=== PATIENT | female | born 1985 | race Caucasian/White ===

== ENCOUNTER 2020-06-18 15:32 | Outpatient (CLI) | payer OTHER, SELFPAY ==
[2020-06-18 15:54] LABS: Basophils Absolute Auto 0.06 K/mm3 (0.00-0.10); Basophils Percent Auto 0.5 % (0.0-1.0); Eosinophils Absolute Auto 0.42 K/mm3 (0.02-0.50); Eosinophils Percent Auto 3.3 % (1.0-6.0); Hematocrit 39.7 % (35.0-49.0); Immature Granulocyte Absolute 0.03 K/mm3 (0.00-0.00); Immature Granulocyte Percent A 0.2 % (0.0-0.0); Lymphocytes Absolute Auto 2.95 K/mm3 (1.10-4.50); Lymphocytes Percent Auto 23.5 % (18.0-42.0); Mean Corpuscular HGB Conc 30.2 g/dL (32.0-36.0); Mean Corpuscular Volume 79.4 fL (78.0-102.0); Mean Platelet Volume 10.3 fl (9.2-11.8); Monocytes Percent Auto 4.8 % (2.0-11.0); Neutrophils Absolute Auto 8.5 K/mm3 (1.7-7.2); Neutrophils Percent Auto 67.7 % (50.0-70.0); Platelet Count Result 364 K/mm3 (150-420); Red Cell Distribution Width 14.6 % (11.6-14.4); White Blood Count 12.6 K/mm3 (4.8-10.8)
[2020-06-18 16:09] LABS: Alanine Aminotransferase 30 U/L (14-59); Albumin Level 3.6 g/dL (3.4-5.0); Alkaline Phosphatase 117 U/L (46-116); Amylase 52 U/L (25-115); Anion Gap 6 mmol/L (8-16); Aspartate Amino Transferase 18 U/L (15-37); Bilirubin,Total 0.4 mg/dL (0.00-1.00); Blood Urea Nitrogen 12 mg/dL (7-18); Calcium 8.7 mg/dL (8.5-10.1); Carbon Dioxide 31 mmol/L (21-32); Chloride 101 mmol/L (98-108); Estimated Glomerular Filt Rate > 60; Glucose 99 mg/dL (70-99); Lipase 101 U/L (73-393); Osmolality Calculated 285 mOsm/kg (285-295); Potassium 3.7 mmol/L (3.5-5.1); Sodium 138 mmol/L (136-145); Total Protein 7.7 g/dL (6.4-8.2)
[2020-06-18 17:14] LABS: Add Urine Microscopic? NO; Appearance Urine Clear (Clear); Bilirubin Urine Negative (Negative); Blood Urine Negative (Negative); Color Urine Yellow (Yellow); Glucose Urine UA Negative (Negative); Ketones Urine Negative (Negative); Leukocyte Esterase Ur Negative LEU/UL (Negative); Nitrate Urine Negative (Negative); Protein Urine Negative (Negative); Specific Grav Ur 1.025 (1.010-1.020); Urobilinogen Urine 0.2 mg/dL (0.2-1.0); pH Urine 6.5 (5.0-8.0)
== END 2020-06-18 15:33 | disposition home or self-care (01) ==
LOC: CHSLAB 15:39
PROVIDERS: PCP Internal Medicine; Visit Provider Internal Medicine
DX: R10.9 Unspecified abdominal pain (principal)
CPT/HCPCS: 36415; 80053; 81003; 82150; 83690; 85025

== ENCOUNTER 2020-06-26 10:20 | Outpatient (CLI) | payer OTHER, SELFPAY ==
--- NOTE | ~2020-06-26 | CT_ITS ---
EXAMINATION: CT abdomen pelvis wo con DATE: 06/26/2020 13:12 INDICATION: Left abdominal pain. TECHNIQUE: Computed tomography (CT) of the abdomen and pelvis was performed without intravenous contr ast. Automated exposure control and iterative reconstruction technique were employed. The dose-length product was 1383.28 mGy-cm. COMPARISON: CT abdomen and pelvis 12/05/2015 FINDINGS: The visualized portions of the lung bases are clear without pneumonia or pleural effusion. The heart size is normal. No pericardial effusion. The liver is normal. There is a gallstone in the g allbladder, which is normal in size. The spleen, pancreas, adrenal glands, and kidneys are normal. Th ere are no dilated loops of bowel. The appendix is normal. There are no pathologically enlarged lymph nodes. There is a small volume of pelvic ascites. There is an infraumbilical ventral hernia containi ng fat and a small volume of ascites. There are likely changes of prior hernia repair. There is sever e degenerative disc disease at L5-S1. IMPRESSION: 1. Infraumbilical ventral hernia containing fat and a small volume of ascites. 2. Cholelithiasis. Reviewed, dictated and finalized at location B.
== END 2020-06-26 10:21 | disposition home or self-care (01) ==
LOC: CHSIMG 10:22
PROVIDERS: PCP Internal Medicine; Visit Provider Internal Medicine
DX: R10.9 Unspecified abdominal pain (principal)
CPT/HCPCS: 74176

== ENCOUNTER 2021-02-20 08:40 | Outpatient (CLI) | payer OTHER, SELFPAY ==
--- NOTE | ~2021-02-20 | MMUS_ITS ---
EXAMINATION: MM diagnostic [facility] BI w steve, US breast BI limited HISTORY: Palpable lump at the 4:00 location of the left breast. TECHNIQUE: Craniocaudal, mediolateral, and mediolateral oblique 3-D tomosynthesis images of the ruelas ts were performed and synthetic 2-D images were generated. CAD analysis was submitted and interpreted . High resolution limited bilateral breast ultrasound was performed. COMPARISON: None, baseline BREAST PARENCHYMAL COMPOSITION: There are scattered areas of fibroglandular density. FINDINGS: MAMMOGRAPHIC FINDINGS: Right breast: There is a 4 mm oval, circumscribed, equal density mass in the middle third of inner br east at the 3:00 location 5 cm from the nipple. Left breast: There is no evidence of suspicious mass, calcification, or architectural distortion to suggest malignancy. No mammographic correlate is identified for the reported palpable abnormality of the left breast. ULTRASOUND: Right breast: There is a 5 mm x 3 mm oval, circumscribed, parallel, hypoechoic mass with no posterior features or internal vascularity at the 2:00 location 3 cm from the nipple. A 3 mm mass with similar sonographic features is seen at the 1:00 location 3 cm from the nipple. Left breast: There is a 3 mm hypoechoic area in the skin of the left breast at the 3:00 location 7 cm from the nipple corresponding to the palpable abnormality of concern. A tract to the skin surface is seen, consistent with a sebaceous cyst. IMPRESSION: 1. Sebaceous cyst of the left breast corresponding to palpable abnormality of concern and probably be nign mass of the inner right breast. 2. Recommend 6 month follow-up right diagnostic mammogram and ultrasound. BI-RADS category 3, probably benign findings. Reviewed, dictated and finalized at location A. IMPRESSION: 1. Sebaceous cyst of the left breast corresponding to palpable abnormality of c oncern and probably benign mass of the inner right breast. 2. Recommend 6 month follow-up right diagnostic mammogram and ultrasound. BI-RADS category 3, probably benign findings.
== END 2021-02-20 08:41 | disposition home or self-care (01) ==
LOC: CHSIMG 08:41
PROVIDERS: PCP Internal Medicine; Visit Provider Nurse Practitioner Family
DX: N64.52 Nipple discharge (principal); N63.0 Unspecified lump in unspecified breast
CPT/HCPCS: 76642; 77062; 77066; G0279

== ENCOUNTER 2021-07-29 07:24 | Emergency (ER) | payer OTHER, SELFPAY ==
--- NOTE | ~2021-07-29 | CT_ITS ---
EXAMINATION: CT abdomen pelvis w con DATE: 07/29/2021 11:04 INDICATION: Lower abdominal pain, nausea, vomiting and diaphoresis. TECHNIQUE: Computed tomography (CT) of the abdomen and pelvis was performed with 100 mL Omnipaque-350 intravenous contrast. Automated exposure control and iterative reconstruction technique were employe d. The dose-length product was 1205.86 mGy-cm. COMPARISON: 06/26/2020 FINDINGS: Lung bases are clear. Heart size is normal. No pericardial or pleural effusion. Calcified gallstone i n the normal-appearing gallbladder. Liver, spleen, pancreas, bilateral adrenal glands and kidneys are normal. Segment of the nonobstructed sigmoid colon extends into a lower pelvic ventral hernia. The o rifice of the hernia measures 3.4 x 4.6 cm and the hernia sac measures 13.2 x 10.7 x 4.8 cm, previous ly 12.6 x 9.1 x 4.0 cm. The remainder of the colon, the small bowel and the appendix are normal. Blad carlota, anteverted uterus and bilateral adnexa are unremarkable. No free intraperitoneal gas or fluid as terry from a small amount of free fluid within the hernia sac. No pathologically enlarged abdominal or pelvic lymphadenopathy. Mild to moderate spondylosis at the lumbosacral junction. IMPRESSION: 1. Unchanged infraumbilical ventral hernia containing nonobstructed sigmoid colon and small amount of fluid. 2. Cholelithiasis. Reviewed, dictated and finalized at location A. IMPRESSION: 1. Unchanged infraumbilical ventral hernia containing nonobstructed sigmoid col on and small amount of fluid. 2. Cholelithiasis.
--- NOTE | ~2021-07-29 | US_ITS ---
EXAMINATION: US pelvic complete w TV DATE: 07/29/2021 08:38 INDICATION: Abdominal pain. Uterine fibroids. TECHNIQUE: Multiple transabdominal and endovaginal sonographic images of the pelvis were obtained. COMPARISON: None. FINDINGS: The uterus measures 12.3 x 8.0 x 8.4 cm. The endometrial complex measures 8-9 mm in thickness. 1.6 s imilar hypoechoic fibroid at the lower uterine segment with small coarse echogenic calcification. Add itional 2.6 cm isoechoic fibroid at the left fundus. 1.4 cm isoechoic fibroid at the right uterine fu ndus. Likely section scar at the anterior lower uterine segment scarring with echogenic like ly sutures or calcifications. The right ovary measures 2.7 x 2.1 x 2.0 cm. The left ovary measures 3. 9 x 2.2 x 1.8 cm. Vascular flow with arterial waveforms at both ovaries on color Doppler. There is no free fluid in the pelvis. IMPRESSION: 1. Fibroid uterus with normal endometrial complex measuring 8-9 mm in maximal thickness. Reviewed, dictated and finalized at location A. IMPRESSION: 1. Fibroid uterus with normal endometrial complex measuring 8-9 mm in maximal t hickness.
[2021-07-29 07:30] VITALS: BP 153/104; PULSE 87; RESP 20; TEMP 36.2; O2SAT 100
--- NOTE | 2021-07-29 07:35 | ED.ABDPAIN ---
HPI - Abdominal Pain General Chief Complaint: Abdominal Pain Stated Complaint: ABD PAIN Source: patient and RN notes reviewed Mode of arrival: ambulatory Limitations: no limitations History of Present Illness MD elicited complaint: abdominal pain Pertinent past history: other (uterine fibroids) Onset (ago): hour(s) (2.5) Pain Consistency: constant Location: RLQ and LLQ Severity: severe Quality: cramping and stabbing Radiation: none Migration to: no migration Exacerbating factors: nothing Relieving factors: nothing Associated symptoms: nausea and vomiting Related Data Allergies Allergy/AdvReac Type Severity Reaction Status Date / Time ibuprofen Allergy Intermediate Verified 03/03/18 09:37 Review of Systems Review of Systems: All systems reviewed & are unremarkable except as noted in HPI and below Constitutional: Constitutional: Denies chills and Denies fever(s) Gastrointestinal: Gastrointestinal: Denies constipation and Denies diarrhea Genitourinary: Genitourinary: Denies dysuria Comments: currently on her monthly menstrual cycle [facility] Past Medical History Medical History (Updated 07/29/21 @ 11:30 by Bob Small MD) Uterine fibroid Surgical History Surgical History (Updated 07/29/21 @ 08:35 by Bob Small MD) Incisional hernia, without obstruction or gangrene Family History Family History Other Cerebrovascular accident Family history of arthritis Family history of heart disease in male family member before age 55 Social History Social History Smoking status: Never smoker Alcohol intake: current Exam Const: General: healthy appearing and no acute distress Nutritional Appearance: well nourished Orientation/consciousness: patient oriented x3 Other: Female nurse in room during examination. HENMT: Head: normal to inspection Ears: external ears normal Mouth: Yes moist mucous membranes Eyes: Conjunctivae: conjunctivae normal Pupils: Equal, round and reactive pupils present EOM: EOMs intact bilaterally Neck: Neck: normal visual inspection Resp: Effort & Inspection: normal respiratory effort Auscultation: clear to auscultation bilaterally Cardio: Rate: regular rate Rhythm: regular rhythm GI: GI Palp: Yes Soft to palpation, Yes Tenderness to palpation present (GI) ( Lower pelvis moderate) and Yes Guarding due to palpation present (GI) ( moderate) Auscultation: Hypoactive bowel sounds present Back/Spine/Pelvis: Cervical Spine: cervical ROM normal Thoracic/Lumbar Spine: thoraco-lumbar ROM normal Skin: General skin exam: normal color Rashes: no rashes Neuro: General: patient oriented x3, moves all extremities, no meningeal signs and no focal motor deficits Speech: normal speech Gait exam (Neuro): Normal gait present Extrem: General: normal to inspection and no clubbing, cyanosis or edema Psych: Appearance: grossly normal and well kempt Mental Status: mental status grossly normal Affect: normal affect Attitude: cooperative Thought content: Yes Normal thought content present Course Vital Signs Vital signs: Vital Signs Temperature 36.2 C L 07/29/21 07:30 Pulse Rate 87 07/29/21 07:30 Respiratory Rate 20 07/29/21 07:30 Blood Pressure 153/104 H 07/29/21 07:30 Pulse Oximetry 100 07/29/21 07:30 Temperature 36.2 C L 07/29/21 08:22 Pulse Rate 71 07/29/21 11:46 Respiratory Rate 14 07/29/21 11:46 Blood Pressure 126/79 07/29/21 11:46 Pulse Oximetry 96 07/29/21 11:46 MDM - Abdominal Pain Lab Data Result diagrams: 07/29/21 07:43 07/29/21 07:43 Labs: Lab Results 07/29/21 07/29/21 07/29/21 Range/Units 07:35 07:35 07:43 WBC 11.9 H (4.8-10.8) K/mm3 RBC 5.58 H (4.20-5.40) M/mm3 Hgb 12.4 (12.0-15.0) g/dL Hct 41.3 (35.0-49.0) % MCV 74.0 L (78.0-102.0) fL MCH 22.2 L (27.0-3
[2021-07-29] MEDS: ONDANSETRON INJ 4 MG/2 ML VIAL IV PUSH (07:55)
[2021-07-29 07:57] LABS: Basophils Absolute Auto 0.04 K/mm3 (0.00-0.10); Basophils Percent Auto 0.3 % (0.0-1.0); Eosinophils Absolute Auto 0.15 K/mm3 (0.02-0.50); Eosinophils Percent Auto 1.3 % (1.0-6.0); Hematocrit 41.3 % (35.0-49.0); Hemoglobin 12.4 g/dL (12.0-15.0); Immature Granulocyte Absolute 0.05 K/mm3 (0.00-0.00); Immature Granulocyte Percent A 0.4 % (0.0-0.0); Lymphocytes Percent Auto 11.8 % (18.0-42.0); Mean Corpuscular Hemoglobin 22.2 pg (27.0-31.0); Mean Platelet Volume 10.2 fl (9.2-11.8); Monocytes Absolute Auto 0.37 K/mm3 (0.10-0.90); Monocytes Percent Auto 3.1 % (2.0-11.0); Neutrophils Absolute Auto 9.9 K/mm3 (1.7-7.2); Neutrophils Percent Auto 83.1 % (50.0-70.0); Platelet Count Result 344 K/mm3 (150-420); Red Blood Count 5.58 M/mm3 (4.20-5.40); Red Cell Distribution Width 15.7 % (11.6-14.4); White Blood Count 11.9 K/mm3 (4.8-10.8)
[2021-07-29 08:06] LABS: Add Urine Microscopic? YES; Appearance Urine Cloudy (Clear); Bilirubin Urine Negative (Negative); Blood Urine 3+ (Negative); Color Urine Red (Yellow); Glucose Urine UA Negative (Negative); Ketones Urine Negative (Negative); Leukocyte Esterase Ur Negative LEU/UL (Negative); Nitrate Urine Negative (Negative); Protein Urine 1+ (Negative); Specific Grav Ur >= 1.030 (1.010-1.020); Urobilinogen Urine 0.2 mg/dL (0.2-1.0); pH Urine 5.5 (5.0-8.0)
[2021-07-29 08:13] LABS: Alanine Aminotransferase 32 U/L (14-59); Albumin Level 3.8 g/dL (3.4-5.0); Alkaline Phosphatase 109 U/L (46-116); Anion Gap 10 mmol/L (8-16); Aspartate Amino Transferase 13 U/L (15-37); Bilirubin,Total 0.4 mg/dL (0.00-1.00); Blood Urea Nitrogen 16 mg/dL (7-18); Calcium 8.8 mg/dL (8.5-10.1); Carbon Dioxide 26 mmol/L (21-32); Chloride 105 mmol/L (98-108); Estimated Glomerular Filt Rate > 60; Glucose 119 mg/dL (70-99); Lipase 113 U/L (73-393); Osmolality Calculated 294 mOsm/kg (285-295); Potassium 3.8 mmol/L (3.5-5.1); Sodium 141 mmol/L (136-145); Total Protein 7.5 g/dL (6.4-8.2)
[2021-07-29 08:16] LABS: Bacteria Urine Trace /hpf; RBC Urine >75 /hpf (0-2); Squamous Epithelial Cell Urine Few /hpf (Few); WBC Urine None seen /hpf (0-3)
[2021-07-29 08:22] VITALS: BP 153/104; PULSE 87; RESP 20; TEMP 36.2; O2SAT 100
[2021-07-29 08:22] LABS: CRP < 0.5 mg/dL (0.0-0.9)
[2021-07-29] MEDS: KETOROLAC 15 MG/ML VIAL (*BKC) IV PUSH ×2 (08:39→08:48)
[2021-07-29] MEDS: HYDROmorphone HCL INJ (*CRX) 2 MG/ML VIAL 1 MG IV PUSH (09:58)
[2021-07-29 10:27] LABS: Pregnancy On Board Control Positive; Urine Pregnancy Test Negative
[2021-07-29 11:46] VITALS: BP 126/79; PULSE 71; RESP 14; O2SAT 96
== END 2021-07-29 11:49 | disposition home or self-care (01) ==
PROVIDERS: Emergency Provider Emergency Medicine; PCP Internal Medicine
DX: D25.1 Intramural leiomyoma of uterus (principal)
CPT/HCPCS: 36415; 74177; 76830; 76856; 80053; 81001; 81025; 83605; 83690; 85025; 86140; 96374; 96375; 99283; 99284; J1170; J1885; J2405; Q9967

== ENCOUNTER 2021-11-03 09:02 | Outpatient (CLI) | payer OTHER, SELFPAY ==
[2021-11-03 10:00] LABS: Influenza Control Valid (Valid); SARS-CoV-2 Ag Positive (Negative)
== END 2021-11-03 09:03 | disposition home or self-care (01) ==
LOC: CHSLAB 09:04
PROVIDERS: PCP Internal Medicine; Visit Provider Internal Medicine
DX: U07.1 COVID-19 (principal); J06.9 Acute upper respiratory infection, unspecified
CPT/HCPCS: 87426; 87804; C9803

== ENCOUNTER 2022-09-04 15:13 | Outpatient (CLI) | payer OTHER, SELFPAY ==
--- NOTE | ~2022-09-04 | XR_ITS ---
XR_CERV2-3V_CR DATE: 09/04/2022 15:52 INDICATION: Pain at base of the neck radiating into right shoulder TECHNIQUE: AP, open-mouth, odontoid, lateral and swimmer views COMPARISON: None FINDINGS: There is straightening of the cervical spine which may be due to muscle spasm. C1 and C2 are normally aligned and the odontoid process is intact. No fracture or dislocation or lock ed facet or prevertebral soft tissue swelling. Cervical interspaces appear relatively well preserved except for mild loss of height at C4-5. IMPRESSION: Mild loss of height at C4-5 interspace Straightening of the cervical spine Reviewed, dictated and finalized at Location A. Reviewed, dictated and finalized at location A.
--- NOTE | ~2022-09-04 | XR_ITS ---
XR shoulder RT min 2V DATE: 09/04/2022 15:52 INDICATION: Pain at base of the neck radiating into right shoulder TECHNIQUE: 5 views COMPARISON: None FINDINGS: No fracture or dislocation, periosteal reaction or bone destruction. Normal alignment at th e acromioclavicular and glenohumeral joints. No abnormal right shoulder soft tissue calcification. One of the views provided 6 a good look at the right cervical neural foramina, without evidence of an y bony encroachment upon these these foramina. IMPRESSION: No significant abnormality of right shoulder; no significant bony encroachment upon the r ight cervical neural foramina Reviewed, dictated and finalized at location A. IMPRESSION: No significant abnormality of right shoulder; no significant bony e ncroachment upon the right cervical neural foramina
== END 2022-09-04 15:14 | disposition home or self-care (01) ==
LOC: CHSIMG 15:15
PROVIDERS: PCP Internal Medicine; Visit Provider Internal Medicine
DX: M54.2 Cervicalgia (principal); M25.511 Pain in right shoulder
CPT/HCPCS: 72040; 73030

== ENCOUNTER 2022-11-16 08:18 | Outpatient (CLI) | payer OTHER, SELFPAY ==
[2022-11-16 08:58] LABS: Basophils Absolute Auto 0.09 K/mm3 (0.00-0.10); Basophils Percent Auto 0.8 % (0.0-1.0); Eosinophils Absolute Auto 0.49 K/mm3 (0.02-0.50); Eosinophils Percent Auto 4.4 % (1.0-6.0); Hematocrit 37.6 % (35.0-49.0); Hemoglobin 11.5 g/dL (12.0-15.0); Immature Granulocyte Absolute 0.05 K/mm3 (0.00-0.00); Immature Granulocyte Percent A 0.4 % (0.0-0.0); Lymphocytes Absolute Auto 2.88 K/mm3 (1.10-4.50); Lymphocytes Percent Auto 25.9 % (18.0-42.0); Mean Corpuscular HGB Conc 30.6 g/dL (32.0-36.0); Mean Corpuscular Hemoglobin 22.7 pg (27.0-31.0); Mean Corpuscular Volume 74.3 fL (78.0-102.0); Mean Platelet Volume 10.1 fl (9.2-11.8); Monocytes Absolute Auto 0.55 K/mm3 (0.10-0.90); Monocytes Percent Auto 4.9 % (2.0-11.0); Neutrophils Absolute Auto 7.1 K/mm3 (1.7-7.2); Neutrophils Percent Auto 63.6 % (50.0-70.0); Platelet Count Result 366 K/mm3 (150-420); Red Blood Count 5.06 M/mm3 (4.20-5.40); Red Cell Distribution Width 15.7 % (11.6-14.4); White Blood Count 11.1 K/mm3 (4.8-10.8)
[2022-11-16 09:22] LABS: Add Urine Microscopic? NO; Appearance Urine Clear (Clear); Bilirubin Urine Negative (Negative); Blood Urine Negative (Negative); Color Urine Light Yellow (Yellow); Glucose Urine UA Negative (Negative); Ketones Urine Negative (Negative); Leukocyte Esterase Ur Negative (Negative); Nitrate Urine Negative (Negative); Protein Urine Negative (Negative); Urobilinogen Urine 0.2 mg/dL (0.2-1.0)
[2022-11-16 10:00] LABS: Alanine Aminotransferase 34 U/L (14-59); Albumin Level 3.9 g/dL (3.4-5.0); Alkaline Phosphatase 119 U/L (46-116); Anion Gap 10 mmol/L (8-16); Aspartate Amino Transferase 16 U/L (15-37); Bilirubin,Total 0.4 mg/dL (0.00-1.00); Blood Urea Nitrogen 15 mg/dL (7-18); Calcium 8.7 mg/dL (8.5-10.1); Carbon Dioxide 27 mmol/L (21-32); Chloride 99 mmol/L (98-108); Cholesterol 177 mg/dL (0-200); Estimated Glomerular Filt Rate > 60; Glucose 86 mg/dL (70-99); HDL Direct 55 mg/dL (40-60); LDL Cholesterol Calculated 106 mg/dL (<130); Osmolality Calculated 281 mOsm/kg (285-295); Potassium 3.8 mmol/L (3.5-5.1); Sodium 136 mmol/L (136-145); Thyroid Stimulating Hormone 2.25 uIU/mL (0.36-3.74); Total Protein 7.4 g/dL (6.4-8.2); Triglycerides 79 mg/dL (0-150)
[2022-11-16 13:45] LABS: Ferritin 7 ng/mL (8-252); Iron 22 ug/dL (50-170); Percent Iron Saturation 5 % (12-57)
== END 2022-11-16 08:19 | disposition home or self-care (01) ==
LOC: CHSLAB 08:20
PROVIDERS: PCP Internal Medicine; Visit Provider Internal Medicine
DX: D64.89 Other specified anemias (principal)
CPT/HCPCS: 36415; 80053; 80061; 81003; 82728; 83540; 83550; 84443; 85025

== ENCOUNTER 2022-12-16 18:37 | Outpatient (CLI) | payer OTHER, SELFPAY ==
[2022-12-16 18:50] LABS: Occult Blood Negative (Negative)
[2022-12-16 18:50] LABS: Occult Blood Negative (Negative)
[2022-12-16 18:50] LABS: Occult Blood Negative (Negative)
== END 2022-12-16 18:38 | disposition home or self-care (01) ==
LOC: CHSLAB 18:40
PROVIDERS: PCP Internal Medicine; Visit Provider Internal Medicine
DX: D50.9 Iron deficiency anemia, unspecified (principal)
CPT/HCPCS: 82272

== ENCOUNTER 2023-01-13 09:04 | Outpatient (CLI) | payer OTHER, SELFPAY ==
--- NOTE | 2023-01-13 11:00 | NEURO_ITS ---
Impression: Patient with a history of bilateral hand pain; Concern for Carpal Tunnel Syndrome. # Normal nerve conduction study. # Normal needle/EMG exam. # Clinical correlation recommended. Motor Nerve Conduction Upper Extremities Median Nerve Conduction Velocity (m/sec) Terminal Latency (msec) Response Voltage(mV) Elbow-Wrist Wrist Elbow Wrist Right 56 2.7 9 11 Left 57 2.6 8 9 Ulnar Nerve Conduction Velocity (m/sec) Terminal Latency (msec) Response Voltage(mV) Above Elbow Below Elbow Wrist Above Elbow Below Elbow Wrist Right 61 64 2.1 9 8 10 Left 63 65 2.1 9 9 10 F-Wave Latency Median (ms) Ulnar (ms) Right 25.7 24.3 Left 25.2 24.1 Sensory Nerve Conduction Upper Extremities Median Nerve Stimulation Terminal Latency (msec) Wrist/Digit Response Voltage (uV) Wrist Right 2.7/2.8 52/67 Left 2.7/2.7 83/67 Ulnar Nerve Stimulation Terminal Latency (msec) Wrist/Digit Response Voltage (uV) Wrist Right 2.2 76 Left 2.3 77 Radial Nerve Terminal Latency (msec) Response Voltage(mV) Right 1.9 35 Left 1.9 30 Left Right Muscles Examined Fibrillation Fasciculation Scarcity Voltage Duration Left Right Left Right Left Right Left Right Left Right Deltoid Biceps X X Brachioradialis Triceps X X Pronator Teres X X Ext Indicis X X Ext Digitorum X X Abd Poll Brev X X 1st Dorsal Interosseus Paraspinals MTDD
== END 2023-01-13 09:05 | disposition home or self-care (01) ==
PROVIDERS: PCP Internal Medicine; Visit Provider Internal Medicine
DX: M79.631 Pain in right forearm (principal); M79.632 Pain in left forearm; M79.641 Pain in right hand; M79.642 Pain in left hand
CPT/HCPCS: 95886; 95911

== ENCOUNTER 2023-02-09 07:55 | Outpatient (CLI) | payer OTHER, SELFPAY ==
--- NOTE | ~2023-02-09 | XR_ITS ---
XR elbow RT min 3V 02/09/2023 09:04 INDICATION: Right elbow pain PROCEDURE: 3 views right elbow COMPARISON: No prior studies for comparison. FINDINGS: Fracture, dislocation or subluxation is not identified. The soft tissues appear within norm al limits. No foreign bodies are identified. IMPRESSION: 1: NO ACUTE BONE OR JOINT ABNORMALITY IDENTIFIED. Reviewed, dictated and finalized at location L.
--- NOTE | ~2023-02-09 | XR_ITS ---
XR wrist RT min 3V 02/09/2023 09:04 INDICATION: Right wrist pain PROCEDURE: 3 views right wrist COMPARISON: No prior studies for comparison. FINDINGS: Fracture, dislocation or subluxation is not identified. The soft tissues appear within norm al limits. No foreign bodies are identified. IMPRESSION: 1: NO ACUTE BONE OR JOINT ABNORMALITY IDENTIFIED. Reviewed, dictated and finalized at location L.
== END 2023-02-09 07:56 | disposition home or self-care (01) ==
LOC: CHSIMG 07:57
PROVIDERS: PCP Internal Medicine; Visit Provider Orthopaedic Surgery
DX: M25.531 Pain in right wrist (principal); M25.521 Pain in right elbow
CPT/HCPCS: 73080; 73110

== ENCOUNTER 2023-12-09 06:16 | Outpatient (CLI) | payer OTHER, SELFPAY ==
--- NOTE | ~2023-12-09 | MR_ITS ---
MRI of the cervical spine Clinical History: Radiculopathy, pain Technique: Axial T2-weighted and gradient images, and sagittal T1-weighted, T2-weighted, and STIR kamryn ges were acquired. Findings: There is straightening of the normal cervical lordosis. No fracture or subluxation seen. No suspicious bone marrow signal abnormality seen. At C2-C3, C3-C4, and C4-C5, there is no disc bulge or herniation. No spinal canal stenosis, cord comp ression, or neural foraminal narrowing at these levels. At C5-C6, there is mild disc bulge. No spinal canal stenosis, cord compression, or neural foraminal n arrowing. At C6-C7, there is no disc bulge or herniation. No spinal canal stenosis, cord compression, or neural foraminal narrowing. No abnormal signal seen in the spinal cord. Paravertebral soft tissues are unremarkable. Impression: Minimal degenerative spondylosis at C5-C6. Reviewed, dictated and finalized at [facility]. [employer]LYST Impression: Minimal degenerative spondylosis at C5-C6.
== END 2023-12-09 06:17 | disposition home or self-care (01) ==
LOC: CHSIMG 06:21
PROVIDERS: PCP Internal Medicine; Visit Provider Internal Medicine
DX: M54.12 Radiculopathy, cervical region (principal); M43.02 Spondylolysis, cervical region
CPT/HCPCS: 72141

== ENCOUNTER 2024-03-23 06:32 | Outpatient (CLI) | payer OTHER, SELFPAY ==
--- NOTE | ~2024-03-23 | MM_ITS ---
EXAMINATION: MM screening [facility] BI w steve HISTORY: Screening TECHNIQUE: Craniocaudal and mediolateral oblique 3-D tomosynthesis images were obtained and synthetic 2-D images were generated. CAD analysis was submitted and interpreted. COMPARISON: Comparison to multiple prior studies sequentially, with oldest reviewed study dated 02/20. BREAST PARENCHYMAL COMPOSITION: There are scattered areas of fibroglandular density. FINDINGS: There is no evidence of suspicious mass, calcification, or architectural distortion to sugg est malignancy in either breast. There has been no suspicious interval change. IMPRESSION: 1. No mammographic evidence of malignancy. 2. Recommend routine screening mammography in one year. BI-RADS Category 1: Negative Reviewed, dictated and finalized at location A.
== END 2024-03-23 06:33 | disposition home or self-care (01) ==
LOC: CHSIMG 06:33
PROVIDERS: PCP Internal Medicine; Visit Provider Obstetrics & Gynecology
DX: Z12.31 Encounter for screening mammogram for malignant neoplasm of breast (principal)
CPT/HCPCS: 77063; 77067

== ENCOUNTER 2024-08-01 11:56 | Outpatient (CLI) | payer OTHER, SELFPAY ==
--- NOTE | ~2024-08-01 | XR_ITS ---
3 VIEWS THORACIC SPINE Ordering provider: Yimi Razo MD History: . Thoracic Pain,NKI . Comparison: None. FINDINGS: VERTEBRAL BODIES: Normal height and alignment. No visible fracture or subluxation. DISK SPACES: Normal. SOFT TISSUES: Normal. IMPRESSION: No acute osseous abnormality of the thoracic spine. Reviewed, dictated and finalized at location A.
== END 2024-08-01 11:57 | disposition home or self-care (01) ==
PROVIDERS: PCP Internal Medicine; Visit Provider Internal Medicine
DX: M54.6 Pain in thoracic spine (principal)
CPT/HCPCS: 72072

== ENCOUNTER 2024-09-08 10:40 | Outpatient (CLI) | payer OTHER, SELFPAY ==
[2024-09-08 11:21] LABS: Basophils Percent Auto 0.7 % (0.0-1.0); Eosinophils Absolute Auto 0.41 K/mm3 (0.02-0.50); Eosinophils Percent Auto 2.7 % (1.0-6.0); Hematocrit 46.3 % (35.0-49.0); Hemoglobin 15.3 g/dL (12.0-15.0); Immature Granulocyte Absolute 0.07 K/mm3 (0.00-0.00); Immature Granulocyte Percent A 0.5 % (0.0-0.0); Lymphocytes Absolute Auto 2.21 K/mm3 (1.10-4.50); Lymphocytes Percent Auto 14.6 % (18.0-42.0); Mean Corpuscular Hemoglobin 27.8 pg (27.0-31.0); Mean Corpuscular Volume 84.2 fL (78.0-102.0); Mean Platelet Volume 9.6 fl (9.2-11.8); Monocytes Absolute Auto 0.82 K/mm3 (0.10-0.90); Monocytes Percent Auto 5.4 % (2.0-11.0); Neutrophils Absolute Auto 11.55 K/mm3 (1.70-7.20); Neutrophils Percent Auto 76.1 % (50.0-70.0); Platelet Count Result 331 K/mm3 (150-420); Red Cell Distribution Width 13.6 % (11.6-14.4); White Blood Count 15.2 K/mm3 (4.8-10.8)
[2024-09-08 11:50] LABS: Alanine Aminotransferase 68 U/L (14-59); Albumin Level 3.6 g/dL (3.4-5.0); Alkaline Phosphatase 131 U/L (46-116); Anion Gap 11 mmol/L (4-12); Aspartate Amino Transferase 37 U/L (15-37); Bilirubin,Total 0.6 mg/dL (0.00-1.00); Blood Urea Nitrogen 8 mg/dL (7-18); Calcium 9.4 mg/dL (8.5-10.1); Carbon Dioxide 27 mmol/L (21-32); Chloride 104 mmol/L (98-108); Estimated Glomerular Filt Rate > 60; Glucose 107 mg/dL (70-99); Osmolality Calculated 292 mOsm/kg (285-295); Potassium 4.3 mmol/L (3.5-5.1); Sodium 142 mmol/L (136-145); Total Protein 7.3 g/dL (6.4-8.2)
[2024-09-08 12:21] LABS: Monoscreen Negative (Negative); Negative Monotest Control Negative (Negative); Positive Monotest Control Positive (Positive)
== END 2024-09-08 10:41 | disposition home or self-care (01) ==
LOC: CHSLAB 10:43
PROVIDERS: PCP Internal Medicine; Visit Provider Nurse Practitioner Family
DX: J02.9 Acute pharyngitis, unspecified (principal); R50.9 Fever, unspecified
CPT/HCPCS: 36415; 80053; 85025; 86308; 87070

== ENCOUNTER 2024-10-10 02:55 | Emergency (ER) | payer OTHER, SELFPAY ==
--- NOTE | ~2024-10-10 | CT_ITS ---
CT of the Abdomen and Pelvis: Indication: Umbilical pain Technique: 2.5 mm axial scans were obtained through the abdomen and pelvis following intravenous adm inistration of 100 cc of Omnipaque 350. Dose reduction technique was used on this scan by utilizing a utomated exposure control and iterative reconstruction technique. The dose-length product (DLP) was 1 443.28 mGy-cm. COMPARISON: 07/29/2021 Findings: Scans through the lung bases are unremarkable. The liver, spleen, pancreas, adrenals and kidneys are within normal limits. Large calcified gallstone present. No evidence of aortic aneurysm. No lymphadenopathy. There is a focally distended area of small bowel just anterior to the uterus (axial image [id number], co cassy image 48). Possible minimal adjacent inflammatory stranding. Remainder of small bowel and large bowel is unremarkable, nondistended.. There is no evidence to suggest acute appendicitis. There is a probable small seroma at the anteroinferior subcutaneous soft tissues measuring 4.5 x 1.8 cm (axial image 172). Images through the pelvis were performed. Urinary bladder unremarkable. IUD in place. No pelvic mass evident. No ascites. Impression: Focally distended area of small bowel, with possible minimal adjacent inflammatory change, as detaile d above. Appearance is somewhat nonspecific. Consider Meckel's diverticulum/diverticulitis. Correlate clinically. Cholelithiasis. Reviewed, dictated and finalized at [facility]. NISTRATIVE MEDICAL DIRECTOR Impression: Focally distended area of small bowel, with possible minimal adjacent inflammat ory change, as detailed above. Appearance is somewhat nonspecific. Consider Mec fariha's diverticulum/diverticulitis. Correlate clinically. Cholelithiasis.
[2024-10-10 09:19] VITALS: BP 126/79; PULSE 80; RESP 16; TEMP 35.9; O2SAT 98
[2024-10-10 10:08] LABS: Appearance Urine Clear (Clear); Bilirubin Urine Negative (Negative); Glucose Urine UA Negative (Negative); Ketones Urine 2+ (Negative); Leukocyte Esterase Ur Negative (Negative); Nitrate Urine Negative (Negative); Protein Urine Negative (Negative); Urobilinogen Urine 0.2 mg/dL (0.2-1.0)
[2024-10-10 10:09] LABS: Add Urine Microscopic? NO; Blood Urine Negative (Negative); Color Urine Light Yellow (Yellow)
[2024-10-10 10:10] LABS: Strep Group A RT-PCR NOT DETECTED (Negative)
[2024-10-10 10:11] LABS: Monoscreen Negative (Negative); Negative Monotest Control Negative (Negative); Positive Monotest Control Positive (Positive); Pregnancy On Board Control Positive; Urine Pregnancy Test Negative
[2024-10-10 10:13] LABS: Anion Gap 9 mmol/L (4-12); Blood Urea Nitrogen 5 mg/dL (7-18); Carbon Dioxide 27 mmol/L (21-32); Chloride 102 mmol/L (98-108); Estimated Glomerular Filt Rate > 60; Potassium 3.6 mmol/L (3.5-5.1); Sodium 138 mmol/L (136-145)
[2024-10-10 10:14] LABS: Alanine Aminotransferase 33 U/L (14-59); Albumin Level 3.7 g/dL (3.4-5.0); Alkaline Phosphatase 101 U/L (46-116); Aspartate Amino Transferase 13 U/L (15-37); Bilirubin,Total 0.7 mg/dL (0.00-1.00); Calcium 9.3 mg/dL (8.5-10.1); Glucose 133 mg/dL (70-99); Lipase 20 U/L (16-77); Osmolality Calculated 285 mOsm/kg (285-295)
[2024-10-10 10:18] LABS: Hematocrit 41.3 % (35.0-49.0); Hemoglobin 14.2 g/dL (12.0-15.0); Mean Corpuscular HGB Conc 34.4 g/dL (32-36); Mean Corpuscular Hemoglobin 28.1 pg (27.0-31.0); Mean Corpuscular Volume 81.8 fL (78.0-102.0); Mean Platelet Volume 9.5 fl (9.2-11.8); Platelet Count Result 342 K/mm3 (150-420); Red Blood Count 5.05 M/mm3 (4.20-5.40); Red Cell Distribution Width 13.3 % (11.6-14.4)
[2024-10-10 10:19] LABS: White Blood Count 20.2 K/mm3 (4.8-10.8)
[2024-10-10 10:21] LABS: Band Neutrophils Percent 0 % (0-6); Lymphocytes Absolute Manual 2.62 K/mm3 (1.1-4.5); Lymphocytes Percent Manual 13 % (18-44); Monocytes Percent Manual 3 % (3-9); Neutrophils Absolute Manual 16.96 K/mm3 (1.7-7.2); Neutrophils Percent Manual 84 % (46-73); Platelet Estimate Adequate (Adequate); Total Cells Counted 100
[2024-10-10 10:45] VITALS: BP 132/79; PULSE 84; RESP 18; TEMP 36.4; O2SAT 97
--- NOTE | 2024-10-10 10:45 | ER_ITS ---
This report was moved to the correct visit on 10/13/2024. The original report was signed by Alonso Swanson on 10/10/24 1252. HPI - Abdominal Pain General Chief Complaint: Abdominal Pain Stated Complaint: Abdominal Pain Time Seen by Provider: 10/10/24 07:00 Source: patient and other (report at shift change) Mode of arrival: ambulatory Limitations: no limitations History of Present Illness HPI narrative: (0700) I received report and assumed care of this patient at shift change. Computer down and patient initially on paper chart [see paper chart]. Patient is 39 year old female who presented to the Emergency Department with complaint of abdominal pain. 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 Patient has had diarrhea for months and has been diagnosed with IBS. She has had hernia repairs to lower abdomen and mesh. Patient indicates her pain is midline above umbilcus. MD elicited complaint: abdominal pain Onset (ago): hour(s) (12) Pain Consistency: constant Location: epigastric Radiation: none Exacerbating factors: nothing Relieving factors: nothing Related Data Patient : No Allergies Allergy/AdvReac Type Severity Reaction Status Date / Time ibuprofen Allergy Intermediate Itching Verified 02/09/23 10:12 naproxen AdvReac Mild Itching Verified 10/10/24 08:28 Review of Systems Review of Systems: All systems reviewed & are unremarkable except as noted in HPI and below Constitutional: Constitutional: Reports as per HPI, Denies chills and Denies fever(s) Eyes: Eyes: Reports as per HPI ENT: Reports system reviewed and no additional complaints, except as documented Cardiovascular: Cardiovascular: Reports as per HPI Respiratory: Respiratory: Reports as per HPI Gastrointestinal: Gastrointestinal: Reports as per HPI, Reports abdominal pain and Reports diarrhea Genitourinary: Genitourinary: Reports no additional female genitourinary complaints Musculoskeletal: Musculoskeletal: Reports no additional musculoskeletal complaints Integumentary/Breasts: Skin/Breast: Reports system reviewed and no additional complaints, except as docu Neurologic: Reports system reviewed and no additional complaints, except as documented Psychiatric: Psychiatric: Reports no additional psychiatric complaints Endocrine: Endocrine: Reports no additional endocrine complaints Hematologic/Lymphatic: Hematologic/Lymphatic: Reports no additional hematologic/lymphatic complaints Allergic/Immunologic: Allergic/Immunologic: Reports no additional allergic/immunologic complaints PMFSH Past Medical History Medical History Strain of right biceps brachii muscle or tendon Uterine fibroid Surgical History Surgical History History of section Incisional hernia, without obstruction or gangrene [address] [place] [address] Family History Family History Mother Heart disease Diabetes mellitusFather Heart diseaseOther Cerebrovascular accident Family history of arthritis Family history of heart disease in male family member before age 55 Social History Social History Smoking status: Never smoker Alcohol intake: current Substance use: never Living arrangements: with family Additional living arrangements comments: Patient lives at home with her and four of her children. Occupation/Education: occupation Additional occupation/education comments: Patient Access with [place] [employer] [place] Gender identity (if verbalized by the patient): Female Sexual Orientation (if Verbalized by the Patient): Straight or Heterosexual Exam Const: General: healthy appearing and no acute distress Nutritional Appearance: obese Orientation/consciousness: patient oriented x3 Limitations: no limitations HENMT: Head: normal to inspection Ears: external ears normal Face/Nose/Sinus: Normal external nose present Face and sinus: normal facial exam Mouth: Yes Normal oral and palatal mucosa present Eyes: Conjunctivae: conjunctivae normal Pupils: Equal, round and reactive pupils present EOM: EOMs intact bilaterally Direct Ophthalmoscopy: no photophobia Neck: Neck: normal visual inspection Chest: Chest palpation & inspection: normal inspection of the chest Resp: Effort & Inspection: normal respiratory effort Auscultation: clear to auscultation bilaterally Cardio: Rate: regular rate Rhythm: regular rhythm GI: Inspection: non-distended GI Palp: Yes Soft to palpation, Yes Tenderness to palpation present (GI) (mildly midline above umbilicu), No Guarding due to palpation present (GI), No Hernia present, No Palpable mass present and No Rebound tenderness present Auscultation: normal bowel sounds : General: Yes bladder normal to palpation Back/Spine/Pelvis: Back: no CVA tenderness Skin: General skin exam: normal color Rashes: no rashes Neuro: General: patient oriented x3 Cranial nerves: Yes Nystagmus not present Speech: normal speech Gait exam (Neuro): Normal gait present Other: grossly normal Extrem: General: normal to inspection and no clubbing, cyanosis or edema Psych: Mental Status: mental status grossly normal Course Course Emergency Course: (07) I received report and assumed care of this patient at shift change. Patient here with abdominal pain [indicates midline above umbilicus]. 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 Has had diarrhea for months and has been diagnosed with IBS in the past. Patient added she has had sore throat for several months now, has been w/u and negative, and her daughter was dx with mono. PE: tender just above umbilicus midline, no guarding or rebound CBC: H/H 14.2/41.3, Plt 342; wbc 20.2 with 85 S, 13 L, 3 M [patient states she normally has high WBC] CMP: Na 138, K 3.6, Cl 102, CO2 27, Glc 133, BUN 5, Cr 0.87; LFT's normal UA: 2+ ketones UPreg: neagativ Strep: negative Jasper: negative CT Abd/Pelvis: single large gallstone, no gallbladder wall thickening or surrounding inflammatory changes. 2.5 x 4 x 4.5 cm fluid collection 14 cm below umbilicus in midline. ? post surgical. *reviewed and discussed results with patient. Discussed further management. [7130] Called patient's hernia surgeon [Dr. Lawrence Mackay at [facility]] Office said he would call back. [no call back for 90 minutes] Patient states she is ready to go home. Her abdomen feels somewhat better. States she will contact her surgeon and follow up . Instructions (9719) Dr. Mackay's sales office assistant called back. Report given. Will f/u with patient. Vital Signs Vital signs: Vital Signs Temperature 35.9 C L 10/10/24 09:19 Pulse Rate 80 10/10/24 09:19 Respiratory Rate 16 10/10/24 09:19 Blood Pressure 126/79 10/10/24 09:19 Pulse Oximetry 98 10/10/24 09:19 Oxygen Delivery Room Air 10/10/24 09:19 Temperature 36.4 C L 10/10/24 10:45 Pulse Rate 84 10/10/24 10:45 Respiratory Rate 18 10/10/24 10:45 Blood Pressure 132/79 10/10/24 10:45 Pulse Oximetry 97 10/10/24 10:45 Oxygen Delivery Room Air 10/10/24 10:45 Discharge Plan Discharge Clinical Impression: Abdominal pain, Abdominal fluid collection, Gallstone, Leukocytosis Patient Disposition: Home, Self-Care Condition: Stable Instructions: Irritable Bowel Syndrome (ED), Gallstones (ED), Abdominal Pain (ED) Additional Instructions: Push fluids Take medications as prescribed Follow up Primary Care Provider Follow up with your Surgeon (Dr. Mackay). Call today Return as needed Patient Language: Telugu Prescriptions: New ondansetron 4 mg tablet,disintegrating 4 mg PO Q6H PRN (Reason: nausea and vomiting) Qty: 20 0RF hydrocodone-acetaminophen 10-325 mg tablet 1 tablet PO Q6H PRN (Reason: pain) Qty: 20 0RF Follow-up/Referrals: Yimi Razo MD [Primary Care Provider] - Time of Disposition: 10:48 This report may have been done utilizing a voice recognition system. Attempts have been made to correct errors. However, there may be uncorrected grammatical, spelling, and recognition errors present. Report Initialized date/time: Alonso Swanson MD 10/10/24 / 1045 Electronically signed by: Alonso Swanson MD 10/10/24 0713 [facility]
== END 2024-10-10 10:55 | disposition home or self-care (01) ==
PROVIDERS: Emergency Provider Emergency Medicine; PCP Internal Medicine
DX: K80.20 Calculus of gallbladder without cholecystitis without obstruction (principal); D72.829 Elevated white blood cell count, unspecified; R18.8 Other ascites
CPT/HCPCS: 36415; 74177; 80053; 81003; 81025; 83690; 85025; 86308; 87651; 96374; 96375; 96376; 99283; 99284; J1171; J2405; J7030; Q9967

== ENCOUNTER 2024-10-11 14:16 | Outpatient (CLI) | payer OTHER, SELFPAY ==
[2024-10-11 14:50] LABS: Basophils Absolute Auto 0.05 K/mm3 (0.00-0.10); Basophils Percent Auto 0.4 % (0.0-1.0); Eosinophils Absolute Auto 0.27 K/mm3 (0.02-0.50); Eosinophils Percent Auto 2.2 % (1.0-6.0); Hematocrit 40.9 % (35.0-49.0); Hemoglobin 14.1 g/dL (12.0-15.0); Immature Granulocyte Absolute 0.07 K/mm3 (0.00-0.00); Immature Granulocyte Percent A 0.6 % (0.0-0.0); Lymphocytes Absolute Auto 2.35 K/mm3 (1.10-4.50); Lymphocytes Percent Auto 19.4 % (18.0-42.0); Mean Corpuscular HGB Conc 34.5 g/dL (32-36); Mean Corpuscular Hemoglobin 28.8 pg (27.0-31.0); Mean Corpuscular Volume 83.5 fL (78.0-102.0); Mean Platelet Volume 9.6 fl (9.2-11.8); Monocytes Absolute Auto 0.62 K/mm3 (0.10-0.90); Monocytes Percent Auto 5.1 % (2.0-11.0); Neutrophils Absolute Auto 8.78 K/mm3 (1.70-7.20); Neutrophils Percent Auto 72.3 % (50.0-70.0); Platelet Count Result 327 K/mm3 (150-420); Red Cell Distribution Width 13.5 % (11.6-14.4); White Blood Count 12.1 K/mm3 (4.8-10.8)
[2024-10-11 15:14] LABS: CRP 5.5 mg/dL (0.0-0.9)
[2024-10-11 17:41] LABS: Toxigenic C. Diff NEGATIVE (NEGATIVE)
[2024-10-13 04:23] LABS: EBV Virus Capsid Ag IgM Ab <36.00 U/mL
[2024-10-18 16:09] LABS: Calprotectin, Stool 352 mcg/g
== END 2024-10-11 14:17 | disposition home or self-care (01) ==
LOC: CHSLAB 14:18
PROVIDERS: PCP Internal Medicine; Visit Provider Internal Medicine
DX: R10.9 Unspecified abdominal pain (principal); R19.7 Diarrhea, unspecified
CPT/HCPCS: 36415; 83993; 85025; 86140; 86664; 86665; 87045; 87177; 87209; 87427; 87449; 87493

== ENCOUNTER 2024-10-20 13:47 | Outpatient (CLI) | payer OTHER, SELFPAY ==
--- NOTE | 2024-10-20 13:53 | ECG_ITS ---
Test Date: 2024-10-20 14:09:39 Measurements Intervals [place] Rate: 105 P: 61 TN: 142 QRS: 25 QRSD: 85 T: 46 QT: 315 QTc: 418 Interpretive Statements SINUS TACHYCARDIA SEPTAL MYOCARDIAL INFARCTION , PROBABLY OLD [40+ ms Q WAVE IN V1/V2] No previous ECG available for comparison Electronically Signed On 10-20-2024 15:45:47 SCREEN AND CYCLONE REPAIRER by Brent Kern M.D.
== END 2024-10-20 13:48 | disposition home or self-care (01) ==
LOC: CHSCARD 13:49
PROVIDERS: PCP Internal Medicine; Visit Provider Internal Medicine
DX: R00.0 Tachycardia, unspecified (principal)
CPT/HCPCS: 93005

== ENCOUNTER 2024-10-23 11:06 | Outpatient (CLI) | payer OTHER, SELFPAY ==
[2024-10-23 11:29] LABS: Basophils Absolute Auto 0.07 K/mm3 (0.00-0.10); Basophils Percent Auto 0.7 % (0.0-1.0); Eosinophils Absolute Auto 0.36 K/mm3 (0.02-0.50); Eosinophils Percent Auto 3.4 % (1.0-6.0); Hematocrit 42.2 % (35.0-49.0); Immature Granulocyte Absolute 0.04 K/mm3 (0.00-0.00); Immature Granulocyte Percent A 0.4 % (0.0-0.0); Lymphocytes Absolute Auto 2.46 K/mm3 (1.10-4.50); Lymphocytes Percent Auto 23.2 % (18.0-42.0); Mean Corpuscular HGB Conc 33.2 g/dL (32-36); Mean Corpuscular Hemoglobin 27.7 pg (27.0-31.0); Mean Corpuscular Volume 83.6 fL (78.0-102.0); Mean Platelet Volume 9.6 fl (9.2-11.8); Monocytes Absolute Auto 0.64 K/mm3 (0.10-0.90); Neutrophils Absolute Auto 7.03 K/mm3 (1.70-7.20); Neutrophils Percent Auto 66.3 % (50.0-70.0); Platelet Count Result 321 K/mm3 (150-420); Red Blood Count 5.05 M/mm3 (4.20-5.40); Red Cell Distribution Width 13.7 % (11.6-14.4); White Blood Count 10.6 K/mm3 (4.8-10.8)
[2024-10-23 11:41] LABS: D Dimer 0.37 mg/L (0.19-0.50)
[2024-10-23 12:13] LABS: Alanine Aminotransferase 20 U/L (14-59); Albumin Level 3.6 g/dL (3.4-5.0); Alkaline Phosphatase 90 U/L (46-116); Anion Gap 9 mmol/L (4-12); Aspartate Amino Transferase 14 U/L (15-37); Bilirubin,Total 0.4 mg/dL (0.00-1.00); Blood Urea Nitrogen 11 mg/dL (7-18); Carbon Dioxide 29 mmol/L (21-32); Chloride 103 mmol/L (98-108); Creatine Kinase 86 U/L (26-192); Estimated Glomerular Filt Rate > 60; Free T3 2.79 pg/mL (2.18-3.98); Free T4 Free Thyroxine 1.04 ng/dL (0.76-1.46); Glucose 110 mg/dL (70-99); NT Pro B Type Natriuretic Pept 41 pg/mL (0-125); Osmolality Calculated 292 mOsm/kg (285-295); Potassium 3.9 mmol/L (3.5-5.1); Sodium 141 mmol/L (136-145); Thyroid Stimulating Hormone 0.91 uIU/mL (0.36-3.74); Total Protein 6.5 g/dL (6.4-8.2); Troponin I 6.3 ng/L (0.00-60.4)
== END 2024-10-23 11:07 | disposition home or self-care (01) ==
LOC: CHSLAB 11:08
PROVIDERS: PCP Internal Medicine; Visit Provider Internal Medicine
DX: R00.0 Tachycardia, unspecified (principal); R10.10 Upper abdominal pain, unspecified
CPT/HCPCS: 36415; 80053; 82550; 82553; 83880; 84439; 84443; 84481; 84484; 85025; 85380; 86140

== ENCOUNTER 2024-11-10 09:22 | Outpatient (CLI) | payer OTHER, SELFPAY ==
--- NOTE | ~2024-11-10 | NM_ITS ---
EXAMINATION: NM Meckel's DATE: 11/10/2024 11:05 INDICATION: Meckel's diverticulum. TECHNIQUE: 15 mCi Tc 99m was administered intravenously. Scintigraphic images of the abdomen were ob tained for one hour. COMPARISON: CT abdomen and pelvis 10/10/2024 FINDINGS: There is no gastric mucosa in the Meckel diverticulum. IMPRESSION: 1. No gastric mucosa in the Meckel diverticulum seen by CT. Reviewed, dictated and finalized at location A. MUD THICKENER OPERATOR
== END 2024-11-10 09:23 | disposition home or self-care (01) ==
LOC: CHSIMG 09:23
PROVIDERS: PCP Internal Medicine; Visit Provider Internal Medicine
DX: Q43.0 Meckel's diverticulum (displaced) (hypertrophic) (principal)
CPT/HCPCS: 78290; A9512

== ENCOUNTER 2025-01-29 01:52 | Day surgery (SDC) | payer OTHER, SELFPAY ==
[2025-01-22 10:28] VITALS: BMI 40.7
--- NOTE | 2025-01-26 18:44 | P.PNAN_ITS ---
Anes - Eval Pre Procedure Procedure: Operation Date: 01/29/25 08:00 Proposed Procedures p Esophagogastroduodenoscopy & Colonoscopy - Teofilo Roldan MD Date/Time: 01/26/25 18:44 Pre Op Diagnosis: foreign body sensation throat,chronic pharyngitis Patient Data Age: 39 Gender: F Height: 1.6 m Weight: 104.4 kg Allergies Allergy/AdvReac Type Severity Reaction Status Date / Time ibuprofen Allergy Intermediate Itching Verified 01/22/25 10:29 naproxen AdvReac Mild Itching Verified 01/22/25 10:29 Home Medications ?Medication ?Instructions ?Recorded ?Confirmed ?Type hydrocodone 10 mg-acetaminophen 1 tablet PO Q6H PRN pain #20 tabs 10/10/24 01/22/25 Rx 325 mg tablet ondansetron 4 mg disintegrating 4 mg PO Q6H PRN nausea and 10/10/24 01/22/25 Rx tablet vomiting #20 tabs dicyclomine 10 mg capsule 10 - 20 mg (1 - 2 x 10 mg) PO QID 11/21/24 01/22/25 Rx PRN abdominal pain #120 caps Patient hx anesthesia problems: none Family hx anesthesia problems: none Results Review: All pre-operative results and documents have been reviewed as part of the pre- operative evaluation. [facility] Past Medical History Medical History (Updated 01/26/25 @ 18:45 by No Petty CRNA) Morbid obesity Diverticulitis small intestine w/o perforation or abscess w/o bleeding Strain of right biceps brachii muscle or tendon Uterine fibroid Surgical History Surgical History History of section Incisional hernia, without obstruction or gangrene [address] [place] [address] Family History Family History Mother Heart disease Diabetes mellitus Father Heart disease Other Cerebrovascular accident Family history of arthritis Family history of heart disease in male family member before age 55 Social History Social History Smoking status: Never smoker Alcohol intake: current Substance use: never Substance use type: does not use Living arrangements: with family Additional living arrangements comments: Patient lives at home with her and four of her children. Occupation/Education: occupation Additional occupation/education comments: Patient Access with a [employer] [facility] [employer] [facility] [place] Gender identity (if verbalized by the patient): Female Sexual Orientation (if Verbalized by the Patient): Straight or Heterosexual Spiritual care concerns: No Exam Day of Procedure 01/26/25 18:44
--- OUTSIDE RECORDS SUMMARY | 2025-01-29 01:55 | XMS_ITS | Referral Summary ---
Author Organization [facility] Address [address] [place] [id number] Care Team Providers Care Ui Software Engineer Name Role Phone Yimi Razo MD Primary Care Provider [phone] Allergies Active Allergy Reactions Criticality Noted Date Comments Ibuprofen Itching Low 03/06/2021 Medications magnesium oxide (MAG-OX) 400 mg (241.3 mg elemental magnesium) tabletIndicatio ns:supplement Take 1 tablet (400 mg total) by mouth as needed Active ascorbic acid (VITAMIN C ORAL)Indication s:supplement Take 1 tablet by mouth as needed Active turmeric root extract 500 mg capsuleIndicati ons:supplement Take 1 tablet/capsule by mouth as needed Active angel root, bulk, powderIndicatio ns:supplement Take 1 tablet by mouth as needed Active acetaminophen 500 mg capsule Take 2 capsules (1,000 mg total) by mouth every 6 (six) hours as needed for pain Use first for management of pain 2 Active docusate sodium (COLACE) 100 mg capsuleIndicati ons:constipatio n Take 1 capsule (100 mg total) by mouth 2 (two) times a day 30 capsule 2 Active Active Problems Problem Noted Date Diagnosed Date Ventral hernia without obstruction or gangrene 0 04/27/2022 Family history of breast cancer 03/10/2022 Incisional hernia, without obstruction or gangre ne 02/12/2022 Overview (02/12/2022): Added automatically from request for surgery [id number] Breast mass 03/06/2021 Abnormal mammogram of right breast 03/06/2021 Immunizations Immunization Administration Dates Next Due Influenza, Quadrivalent, Split, Intramuscular Influenza, Trivalent, IM (MDV) 08/11/2013,2011 Social History Tobacco Use Types Packs/Day Years Used Date Smoking Tobacco: Never Smokeless Tobacco: Never AUDIT-C Answer Date Recorded Q1: How often do you have a drink containing alc ohol? Monthly or less 04/27/2022 Average Number of Drinks Not on file 022 Q3: How often do you have si x or more drinks on one occasion? Never 04/27/2022 Comments No Sex and Gender Information Value Date Recorded Sex Assigned at Not on file Legal Sex Female 2:14 AM COMMERCIAL SOLAR SALES CONSULTANT Gender Identity Not on file Sexual Orientation Not on file Last Filed Vital Signs Vital Sign Reading Time Taken Comments Blood Pressure 131/90 10/20/2024 8:50 AM COMMERCIAL SOLAR SALES CONSULTANT Pulse 109 10/20/2024 8:50 AM COMMERCIAL SOLAR SALES CONSULTANT Temperature 36.3 C (97.4 F) 10/20/2024 8:50 AM COMMERCIAL SOLAR SALES CONSULTANT Respiratory Rate 17 04/28/2022 12:09 PM CDT Oxygen Saturation 97% 10/20/2024 8:50 AM COMMERCIAL SOLAR SALES CONSULTANT Inhaled Oxygen Concentration - - Weight 104.8 kg (231 lb) 10/20/2024 8:50 AM COMMERCIAL SOLAR SALES CONSULTANT Height 160 cm (5' 3 ) 10/20/2024 8:50 AM COMMERCIAL SOLAR SALES CONSULTANT Body Mass Index 40.92 10/20/2024 8:50 AM COMMERCIAL SOLAR SALES CONSULTANT Plan of Treatment Not on file Medical Devices Implanted Type Area Digital Computer Systems Analyst Device Identifier Shelf Expiration Date Model / Serial / Lot [employer]/C R Bard [id number] Monofilament Soft Lightweight Low Profile Square - [id number] Implanted:Qty: 1 on 04/27/2022 by Ciro Mackay MD at [facility] Mesh N/A: Abdomen [employer] R Bard [id number] 10/28/2026 [id number] / / [id number] Procedures Procedure Name Priority Date/Time Associated Diagnosis Comments DIAGNOSTIC MAMMOGRAM BILATERAL W BRANDIN Schedule Routine, Read Routine (OP Routine) 03/16/2023 2:50 PM CDT Family history of breast cancer from Last 3 Months or Most Recently Relevant to Health Maintenance Results * Diagnostic Mammogram Bilateral W Brandin (03/16/2023 2:50 PM CDT) Anatomical Region Laterality Modality Breast Bilateral Mammography 03/16/2023 3:29 PM CDT Impressions 03/16/2023 4:30 PM CDT 1. No mammographic evidence of malignancy within either breast. 2. Stable oval masses in the RIGHT breast at 12:00 and 1:30 since 2020, therefore deemed benign. OVERALL FINAL ASSESSMENT: BI-RADS Category 2: Benign. RECOMMENDATION: Annual screening mammography is recommended. Dictated by: Kermit Weber M.D. The radiology attending physician has personally reviewed this study, and had reviewed and/or edited this written report and agrees with it. Electronically signed by: Macrina Will M.D. Narrative 03/16/2023 4:30 PM CDT EXAMINATION: BILATERAL DIGITAL DIAGNOSTIC MAMMOGRAM INCLUDING CAD AND BILATERAL DIGITAL BREAST TOMOSYNTHESIS; RIGHT BREAST SONOGRAM HISTORY: 37-year-old woman with 2 probably benign masses in the RIGHT breast initially evaluated on 02/20/2021 at outside facility. COMPARISON: Bilateral diagnostic mammogram and right breast ultrasound 03/10/2022, right diagnostic mammogram and ultrasound 09/10/2021, outside bilateral mammogram 02/20/2021 TECHNIQUE: Full field digital mammographic views of BOTH breasts were performed, including computer aided detection (CAD) and BILATERAL digital breast tomosynthesis (DBT). Directed ultrasound evaluation of the RIGHT breast was performed. BREAST PARENCHYMAL COMPOSITION: There are scattered areas of fibroglandular density. MAMMOGRAM FINDINGS: There is no new suspicious abnormality in either breast. SONOGRAM FINDINGS: Stable bilobed hypoechoic mass in the RIGHT breast at 12:00, 5 cm from the nipple measuring 4 x 2 x 5 mm, previously measuring 0.6 x 0.2 cm. Stable oval hypoechoic mass at 1:30, 5 cm from the nipple with circumscribed margins measuring 4 mm x 3 mm x 3 mm, previously measuring 0.5 x 0.3 x 0.4 cm. Procedure Note Macrina Will MD - 03/16/2023 EXAMINATION: BILATERAL DIGITAL DIAGNOSTIC MAMMOGRAM INCLUDING CAD AND BILATERAL DIGITAL BREAST TOMOSYNTHESIS; RIGHT BREAST SONOGRAM HISTORY: 37-year-old woman with 2 probably benign masses in the RIGHT breast initially evaluated on 02/20/2021 at outside facility. COMPARISON: Bilateral diagnostic mammogram and right breast ultrasound 03/10/2022, right diagnostic mammogram and ultrasound 09/10/2021, outside bilateral mammogram 02/20/2021 TECHNIQUE: Full field digital mammographic views of BOTH breasts were performed, including computer aided detection (CAD) and BILATERAL digital breast tomosynthesis (DBT). Directed ultrasound evaluation of the RIGHT breast was performed. BREAST PARENCHYMAL COMPOSITION: There are scattered areas of fibroglandular density. MAMMOGRAM FINDINGS: There is no new suspicious abnormality in either breast. SONOGRAM FINDINGS: Stable bilobed hypoechoic mass in the RIGHT breast at 12:00, 5 cm from the nipple measuring 4 x 2 x 5 mm, previously measuring 0.6 x 0.2 cm. Stable oval hypoechoic mass at 1:30, 5 cm from the nipple with circumscribed margins measuring 4 mm x 3 mm x 3 mm, previously measuring 0.5 x 0.3 x 0.4 cm. IMPRESSION: 1. No mammographic evidence of malignancy within either breast. 2. Stable oval masses in the RIGHT breast at 12:00 and 1:30 since 2020, therefore deemed benign. OVERALL FINAL ASSESSMENT: BI-RADS Category 2: Benign. RECOMMENDATION: Annual screening mammography is recommended. Dictated by: Kermit Weber M.D. The radiology attending physician has personally reviewed this study, and had reviewed and/or edited this written report and agrees with it. Electronically signed by: Macrina Will M.D. Jessica Rahman NP IMG MAMMO PROCEDURES Fin al Result from Last 3 Months or Most Recently Relevant to Health Maintenance Insurance [facility] Address: [address] [address] [place] [id number] [facility] Address: [address] [address] [place] [address] [facility] Address: [address] [address] [place] [address] Advance Directives For more information, please contact: [phone] * Full Code (Latest Code Status on File) Date Activated Date Inactivated Comments 04/27/2022 8:24 PM 04/28/2022 5:41 PM Care Teams Ui Software Engineer Relationship Specialty Start Date End Date Yimi Razo MD PCP - General Internal Medicine 02/21/21
--- OUTSIDE RECORDS SUMMARY | 2025-01-29 01:55 | XMS_ITS | Clinical Summary ---
Author Organization [facility] Address [address] [place] [id number] Care Team Providers Care Publicity Person Name Role Phone Yimi Razo MD Primary Care Provider [phone] Allergies Active Allergy Reactions Criticality Noted Date [...] (02/12/2022): Added automatically from request for surgery [id number] Breast mass 03/06/2021 Abnormal mammogram of right breast 03/06/2021 Immunizations Immunization Administration Dates Next Due Influenza, Quadrivalent, Split, Intramuscular Influenza, Trivalent, IM (MDV) 08/11/2013,2011 Surgical History Surgery Date Site/Laterality Comments SECTION 11/01/2000 - 10/31/2001 SECTION 11/01/2005 - 10/31/2006 SECTION 11/01/2006 - 10/31/2007 SECTION 11/01/2009 - 10/31/2010 SECTION 11/01/2013 - 10/31/2014 BLADDER REPAIR 11/01/2013 - 10/31/2014 HERNIA REPAIR 11/01/2017 - 10/31/2018 Medical History Medical History Date Comments Covid-19 11/03/2021 PONV (postoperative nausea and vomiting) Motion sickness Family History Medical History Relation Name Comments Breast cancer Maternal Grandmother Stroke Paternal Grandfather Relation Name Status Comments Maternal Grandmother Paternal Grandfather Social History Tobacco Use Types Packs/Day Years [...] on file Legal Sex Female 2:14 AM EXTERMINATION INSPECTOR Gender Identity Not on file Sexual Orientation Not on file Obstetrics History Para Term AB IAB SAB Ectopic Multiple Livin g Live Births 7 1 1 2 2 5 Date Outcome GA Total Labor Labor/2nd/3rd Weight Sex Type Anes PTL Angelika A1 A5 Name Clin SAB SAB Last Filed Vital Signs Vital Sign Reading Time Taken Comments Blood Pressure 131/90 10/20/2024 8:50 AM EXTERMINATION INSPECTOR Pulse 109 10/20/2024 8:50 AM EXTERMINATION INSPECTOR Temperature 36.3 C (97.4 F) 10/20/2024 8:50 AM EXTERMINATION INSPECTOR Respiratory Rate 17 04/28/2022 12:09 PM CDT Oxygen Saturation 97% 10/20/2024 8:50 AM EXTERMINATION INSPECTOR Inhaled Oxygen Concentration - - Weight 104.8 kg (231 lb) 10/20/2024 8:50 AM EXTERMINATION INSPECTOR Height 160 cm (5' 3 ) 10/20/2024 8:50 AM EXTERMINATION INSPECTOR Body Mass Index 40.92 10/20/2024 8:50 AM EXTERMINATION INSPECTOR Plan of Treatment Health Maintenance Due Date Last Done Comments Cervical Cancer Screening 1983 Depression Screening 1983 Hepatitis C Screening 1983 DTaP/Tdap/Td Vaccine (1 - Tdap) 1994 Varicella Vaccines (1 of 2 - 13+ 2-dose series) 1996 Hepatitis B Screening 2001 Regular Well Visit/Exam 18-64 2001 Breast Cancer Screening-Mammogram 03/16/2024 03/16/2023, 03/10/2022 Covid-19 Vaccine ( season) 2024 09/12/2021, 11/26/2020, 10/29/2020 Influenza Vaccine Completed 08/02/2024, , 08/11/2013, Additional history exists HPV Vaccines Aged Out No longer eligi ble based on patient's age to complete this topic Pneumococcal vaccine <65 Aged Out No longer eligible based on patient's age to complete this topic Medical Devices Implanted Type Area Transcribing Operator Head Device Identifier Shelf Expiration Date Model / Serial / Lot [employer]/C R Bard [id number] Monofilament Soft Lightweight Low Profile Square - [id number] Implanted:Qty: 1 on 04/27/2022 by Ciro Mackay MD at [facility] Mesh N/A: Abdomen [employer]/C R Bard [id number] 10/28/2026 [id number] / / [id number] Procedures Procedure Name Priority Date/Time Associated Diagnosis [...] Most Recently Relevant to Health Maintenance Insurance [facility] Advance Directives For more information, please contact: [phone] * Full Code (Latest Code Status on File) Date Activated Date Inactivated Comments 04/27/2022 8:24 PM 04/28/2022 5:41 PM Care Teams Publicity Person Relationship Specialty Start Date End Date Yimi Razo MD PCP - General Internal Medicine 02/21/21
[2025-01-29 06:54] VITALS: BP 150/101; PULSE 95; RESP 20; TEMP 36.2; O2SAT 95
[2025-01-29] MEDS: LACTATED RINGERS 1,000 ML 150 ML IV CONT (07:10)
--- NOTE | 2025-01-29 07:11 | WPDANESEPPF ---
Anes - Initial Pre Proc Eval Procedure: Operation Date: 01/29/25 08:00 Proposed Procedures p Esophagogastroduodenoscopy & Colonoscopy - Teofilo Roldan MD Date/Time: 01/29/25 07:11 Surgeon: Teofilo Roldan MD Pre Op Diagnosis: foreign body sensation throat,chronic pharyngitis Patient Data Age: 39 Gender: F Height: 1.6 m Weight: 102.8 kg Last Vital Signs Temp 97.1 F L 01/29/25 06:54 Pulse 95 01/29/25 06:54 Resp 20 01/29/25 06:54 BP 150/101 H 01/29/25 06:54 Pulse Ox 95 01/29/25 06:54 O2 Del Method Room Air 01/29/25 06:54 Allergies Allergy/AdvReac Type Severity Reaction Status Date / Time ibuprofen Allergy Intermediate Itching Verified 01/29/25 06:49 naproxen AdvReac Mild Itching Verified 01/29/25 06:49 Home Medications ?Medication ?Instructions ?Recorded ?Confirmed ?Type hydrocodone 10 mg-acetaminophen 1 tablet PO Q6H PRN pain #20 tabs 10/10/24 01/22/25 Rx 325 mg tablet ondansetron 4 mg disintegrating 4 mg PO Q6H PRN nausea and 10/10/24 01/22/25 Rx tablet vomiting #20 tabs dicyclomine 10 mg capsule 10 - 20 mg (1 - 2 x 10 mg) PO QID 11/21/24 01/22/25 Rx PRN abdominal pain #120 caps Patient hx anesthesia problems: none Family hx anesthesia problems: none Results Review: All pre-operative results and documents have been reviewed as part of the pre-operative evaluation. [facility] Past Medical History Medical History Morbid obesity Diverticulitis small intestine w/o perforation or abscess w/o bleeding Strain of right biceps brachii muscle or tendon Uterine fibroid Surgical History Surgical History History of section Incisional hernia, without obstruction or gangrene [address] [place] [address] Family History Family History Mother Heart disease Diabetes mellitus Father Heart disease Other Cerebrovascular accident Family history of arthritis Family history of heart disease in male family member before age 55 Social History Social History Smoking status: Never smoker Alcohol intake: current Substance use: never Substance use type: does not use Living arrangements: with family Additional living arrangements comments: Patient lives at home with her and four of her children. Occupation/Education: occupation Additional occupation/education comments: Patient Access with a [employer] Gender identity (if verbalized by the patient): Female Sexual Orientation (if Verbalized by the Patient): Straight or Heterosexual Spiritual care concerns: No Anes - Eval Final PreProcedure Day of Procedure 01/29/25 07:11 Patient weight: morbidly obese Lungs: normal air movement Airway: Mallampati scale class II and special considerations (Upper caps. ) Neurological: alert and oriented Last oral intake: >/= 8 hours ASA classification: III Emergent: no Anesthetic plan: proceed Anesthesia type and monitoring: general GIVS and standard monitoring Results Review: All pre-operative results and documents have been reviewed as part of the pre-operative evaluation. Morbid obesity, dysphagia, change in bowel habits. Informed Consent: The patient's anesthetic plan and its attendant risks and benefits were discussed with the patient/family/POA. Questions were solicited and answers provided to the satisfaction of the patient/family/POA.
--- NOTE | 2025-01-29 07:48 | PM.IMHP ---
H&P: HPI History of Present Illness Date/Time: 01/29/25 07:48 Chief Complaint: GERD-dysphagia- recurrent diarrhea Narrative: this patient has been experiencing fluctuation in her bowel habits, mainly diarrhea associated with abdominal pain episodes for several years. She has been diagnosed with irritable bowel syndrome, however there was a question of Crohn's disease in 1 of her visits. In addition, she has at least 3 episodes of heartburn per week occasionally associated with dysphagia to solids and liquids. She is referred now for colonoscopy and EGD Review of Systems Review of Systems: All systems reviewed & are unremarkable except as noted in HPI and below PMFSH Past Medical History Medical History Morbid obesity Diverticulitis small intestine w/o perforation or abscess w/o bleeding Strain of right biceps brachii muscle or tendon Uterine fibroid Surgical History Surgical History History of section Incisional hernia, without obstruction or gangrene [address] [place] [address] Family History Family History Mother Heart disease Diabetes mellitus Father Heart disease Other Cerebrovascular accident Family history of arthritis Family history of heart disease in male family member before age 55 Social History Social History Smoking status: Never smoker Alcohol intake: current Substance use: never Substance use type: does not use Living arrangements: with family Additional living arrangements comments: Patient lives at home with her and four of her children. Occupation/Education: occupation Additional occupation/education comments: Patient Access with a [employer] [facility] [employer] Gender identity (if verbalized by the patient): Female Sexual Orientation (if Verbalized by the Patient): Straight or Heterosexual Spiritual care concerns: No Meds Home Medications and Allergies Home Medications ?Medication ?Instructions ?Recorded ?Confirmed ?Type hydrocodone 10 mg-acetaminophen 1 tablet PO Q6H PRN pain #20 tabs 10/10/24 01/22/25 Rx 325 mg tablet ondansetron 4 mg disintegrating 4 mg PO Q6H PRN nausea and 10/10/24 01/22/25 Rx tablet vomiting #20 tabs dicyclomine 10 mg capsule 10 - 20 mg (1 - 2 x 10 mg) PO QID 11/21/24 01/22/25 Rx PRN abdominal pain #120 caps Allergies Allergy/AdvReac Type Severity Reaction Status Date / Time ibuprofen Allergy Intermediate Itching Verified 01/29/25 06:49 naproxen AdvReac Mild Itching Verified 01/29/25 06:49 Vital Signs Vital Signs - 24 hr 01/29/25 06:54 Temperature 97.1 F L Pulse Rate 95 Respiratory Rate 20 Blood Pressure 150/101 H Pulse Oximetry 95 Oxygen Delivery Room Air Exam Const: General: cooperative and healthy appearing Resp: Effort & Inspection: normal respiratory effort and able to speak in complete sentences Auscultation: clear to auscultation bilaterally Cardio: Rate: regular rate Rhythm: regular rhythm GI: Inspection: normal to inspection GI Palp: No No hepatosplenomegaly present Auscultation: normal bowel sounds Rectal Exam: deferred Skin: General skin exam: normal color Psych: Appearance: grossly normal Mental Status: mental status grossly normal Assessment and Plan Assessment and plan (1) Irritable bowel syndrome with diarrhea: Code(s): K58.0 - Irritable bowel syndrome with diarrhea Status: Acute Assessment and Plan: The patient is deemed a good candidate for the procedures. Consent signed. Will proceed. (2) Odynophagia: Code(s): R13.10 - Dysphagia, unspecified Status: Acute
--- NOTE | 2025-01-29 08:11 | SUR.OPER ---
EGD start 801 end 807, Colonoscopy start 812
[2025-01-29 08:17] LABS: BEDSIDEPREGUCG Negative (Negative)
[2025-01-29 08:26] VITALS: BP 123/71; PULSE 78; RESP 17; O2SAT 95
[2025-01-29 08:36] VITALS: BP 125/83; PULSE 85; RESP 20; O2SAT 100
[2025-01-29 08:46] VITALS: BP 126/81; PULSE 77; RESP 16; O2SAT 99
== END 2025-01-29 08:56 | disposition home or self-care (01) ==
PROVIDERS: PCP Internal Medicine; Referring Provider Nurse Practitioner; Visit Provider Internal Medicine Gastroenterology
PROC: 0DJ08ZZ Inspection of Upper Intestinal Tract, Via Natural or Artificial Opening Endoscopic (ICD-10-PCS; CPT 45378; principal; 2025-01-29 08:00)
DX: K21.00 Gastro-esophageal reflux disease with esophagitis, without bleeding (principal); K29.50 Unspecified chronic gastritis without bleeding; K58.0 Irritable bowel syndrome with diarrhea; E66.01 Morbid (severe) obesity due to excess calories; Z68.41 Body mass index [BMI] 40.0-44.9, adult; Z98.890 Other specified postprocedural states; Z79.891 Long term (current) use of opiate analgesic; Z87.19 Personal history of other diseases of the digestive system; Z82.49 Family history of ischemic heart disease and other diseases of the circulatory system
CPT/HCPCS: 43239; 45380; 88305; 88342; J2003; J2704; J7120

== ENCOUNTER 2025-03-27 07:58 | Outpatient (CLI) | payer OTHER, SELFPAY ==
--- NOTE | ~2025-03-27 | MM_ITS ---
EXAMINATION: MM screening laury BI w steve HISTORY: Screening TECHNIQUE: Craniocaudal and mediolateral oblique 3-D tomosynthesis images were obtained and synthetic 2-D images were generated. CAD analysis was submitted and interpreted. COMPARISON: Comparison to multiple prior studies sequentially, with oldest reviewed study dated 02/20. BREAST PARENCHYMAL COMPOSITION: Not dense: There are scattered areas of fibroglandular density. FINDINGS: There is no evidence of suspicious mass, calcification, or architectural distortion to sugg est malignancy in either breast. There has been no suspicious interval change. IMPRESSION: 1. No mammographic evidence of malignancy. 2. Recommend routine screening mammography in one year. BI-RADS Category 1: Negative Reviewed, dictated and finalized at location A.
--- OUTSIDE RECORDS SUMMARY | 2025-03-27 08:02 | XMS_ITS | Referral Summary ---
Author Organization [facility] Address [address] [place] [address] Care Team Providers Care Battery Filler Name Role Phone Yimi Razo MD Primary Care Provider [phone] Allergies Active Allergy Reactions Criticality Noted Date [...] (02/12/2022): Added automatically from request for surgery [id number] Breast mass 03/06/2021 Abnormal mammogram of right [...] on file Legal Sex Female 2:14 AM ENTRY LEVEL ACCOUNT MANAGER Gender Identity Not on file Sexual Orientation Not on file Last Filed Vital Signs Vital Sign Reading Time Taken Comments Blood Pressure 131/90 10/20/2024 8:50 AM ENTRY LEVEL ACCOUNT MANAGER Pulse 109 10/20/2024 8:50 AM ENTRY LEVEL ACCOUNT MANAGER Temperature 36.3 C (97.4 F) 10/20/2024 8:50 AM ENTRY LEVEL ACCOUNT MANAGER Respiratory Rate 17 04/28/2022 12:09 PM CDT Oxygen Saturation 97% 10/20/2024 8:50 AM ENTRY LEVEL ACCOUNT MANAGER Inhaled Oxygen Concentration - - Weight 104.8 kg (231 lb) 10/20/2024 8:50 AM ENTRY LEVEL ACCOUNT MANAGER Height 160 cm (5' 3) 10/20/2024 8:50 AM ENTRY LEVEL ACCOUNT MANAGER Body Mass Index 40.92 10/20/2024 8:50 AM ENTRY LEVEL ACCOUNT MANAGER Plan of Treatment Not on file Medical Devices Implanted Type Area Technical Program Manager Device Identifier Shelf Expiration Date Model / Serial / Lot [employer]/C R Bard [id number] Bard [id number] Monofilament Soft Lightweight Low Profile Square - [id number] Implanted:Qty: 1 on 04/27/2022 by Ciro Mackay MD at [facility] Mesh N/A: Abdomen [employer]/C R Bard [id number] 10/28/2026 [id number] / / [id number] Procedures Procedure Name Priority Date/Time Associated Diagnosis [...] Most Recently Relevant to Health Maintenance Insurance [facility] [employer] [place] [id number] [employer] [facility] Advance Directives For more information, please contact: [phone] * Full Code (Latest Code Status on File) Date Activated Date Inactivated Comments 04/27/2022 8:24 PM 04/28/2022 5:41 PM Care Teams Battery Filler Relationship Specialty Start Date End Date Yimi Razo MD PCP - General Internal Medicine 02/21/21
--- OUTSIDE RECORDS SUMMARY | 2025-03-27 08:02 | XMS_ITS | Clinical Summary ---
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 Gender Identity Not on file Sexual Orientation Not on file Obstetrics History Para Term AB IAB SAB Ectopic Multiple Livin g Live Births 7 1 1 2 2 5 Date Outcome GA Total Labor Labor/2nd/3rd Weight Sex Type Anes PTL Angelika A1 A5 Name Clin SAB SAB Last Filed Vital Signs Vital Sign Reading Time Taken Comments Blood Pressure 131/90 10/20/2024 8:50 AM MUSIC VIDEO PRODUCER Pulse 109 10/20/2024 8:50 AM MUSIC VIDEO PRODUCER Temperature 36.3 C (97.4 F) 10/20/2024 8:50 AM MUSIC VIDEO PRODUCER Respiratory Rate 17 04/28/2022 12:09 PM CDT Oxygen Saturation 97% 10/20/2024 8:50 AM MUSIC VIDEO PRODUCER Inhaled Oxygen Concentration - - Weight 104.8 kg (231 lb) 10/20/2024 8:50 AM MUSIC VIDEO PRODUCER Height 160 cm (5' 3) 10/20/2024 8:50 AM MUSIC VIDEO PRODUCER Body Mass Index 40.92 10/20/2024 8:50 AM MUSIC VIDEO PRODUCER Plan of Treatment Health Maintenance Due Date [...] this topic Medical Devices Implanted Type Area Brim Molder Device Identifier Shelf Expiration Date Model / Serial / Lot [employer] Inc/C R Bard [id number] Bard [id number] Monofilament Soft Lightweight Low Profile Square - [id number] Implanted:Qty: 1 on 04/27/2022 by Ciro Mackay MD at [facility] Mesh N/A: Abdomen [employer]/C R Bard [id number] 10/28/2026 [id number] / / [id number] Procedures Procedure Name Priority Date/Time Associated Diagnosis [...] Most Recently Relevant to Health Maintenance Insurance [facility] CHO[facility] PLUS [facility] CHO[facility] PLUS [facility] CHO[facility] PLUS Advance Directives For more information, please contact: [phone] * Full Code (Latest Code Status on File) Date Activated Date Inactivated Comments 04/27/2022 8:24 PM 04/28/2022 5:41 PM Care Teams Computer Forensic Examiner Relationship Specialty Start Date End Date Yimi Razo MD PCP - General Internal Medicine 02/21/21
== END 2025-03-27 07:59 | disposition home or self-care (01) ==
LOC: CHSIMG 08:00
PROVIDERS: PCP Internal Medicine; Visit Provider Obstetrics & Gynecology
DX: Z12.31 Encounter for screening mammogram for malignant neoplasm of breast (principal)
CPT/HCPCS: 77063; 77067

== ENCOUNTER 2025-05-18 07:14 | Outpatient (CLI) | payer OTHER, SELFPAY ==
--- OUTSIDE RECORDS SUMMARY | 2025-05-18 07:22 | XMS_ITS | Referral Summary ---
Author Organization [facility] Address [address] [place] [phone] Care Team Providers Care Gauge Maker Apprentice Name Role Phone Yimi Razo MD Primary Care Provider Allergies Active Allergy Reactions Criticality Noted Date [...] (02/12/2022): Added automatically from request for surgery [id number] Breast mass 03/06/2021 Abnormal mammogram of right [...] on file Legal Sex Female 2:14 AM RESEARCH ELECTRICIAN Gender Identity Not on file Sexual Orientation Not on file Last Filed Vital Signs Vital Sign Reading Time Taken Comments Blood Pressure 131/90 10/20/2024 8:50 AM RESEARCH ELECTRICIAN Pulse 109 10/20/2024 8:50 AM RESEARCH ELECTRICIAN Temperature 36.3 C (97.4 F) 10/20/2024 8:50 AM RESEARCH ELECTRICIAN Respiratory Rate 17 04/28/2022 12:09 PM CDT Oxygen Saturation 97% 10/20/2024 8:50 AM RESEARCH ELECTRICIAN Inhaled Oxygen Concentration - - Weight 104.8 kg (231 lb) 10/20/2024 8:50 AM RESEARCH ELECTRICIAN Height 160 cm (5' 3) 10/20/2024 8:50 AM RESEARCH ELECTRICIAN Body Mass Index 40.92 10/20/2024 8:50 AM RESEARCH ELECTRICIAN Plan of Treatment Not on file Medical Devices Implanted Type Area Hand Spring Repairer Device Identifier Shelf Expiration Date Model / Serial / Lot [employer]/C R Bard [id number] Bard [id number] Monofilament Soft Lightweight Low Profile Square - [id number] Implanted:Qty: 1 on 04/27/2022 by Ciro Mackay MD at [facility] Mesh N/A: Abdomen [employer]/C R Bard [id number] 10/28/2026 [id number] / / [id number] Procedures Procedure Name Priority Date/Time Associated Diagnosis [...] Most Recently Relevant to Health Maintenance Insurance [facility] CHOICE PLUS [place] [id number] [facility] CHOICE PLUS [facility] CHO[facility] PLUS Advance Directives For more information, please contact: [phone] * Full Code (Latest Code Status on File) Date Activated Date Inactivated Comments 04/27/2022 8:24 PM 04/28/2022 5:41 PM Care Teams Gauge Maker Apprentice Relationship Specialty Start Date End Date Yimi Razo MD PCP - General Internal Medicine 02/21/21
--- OUTSIDE RECORDS SUMMARY | 2025-05-18 07:22 | XMS_ITS | Clinical Summary ---
Author Organization [facility] Address [address] [place] [phone] Care Team Providers Care Patient Portal Concierge Name Role Phone Yimi Razo MD Primary Care Provider [phone] Allergies Active Allergy Reactions Criticality Noted Date [...] (02/12/2022): Added automatically from request for surgery [id number] Breast mass 03/06/2021 Abnormal mammogram of right [...] on file Legal Sex Female 2:14 AM CUSTOM CLOTHIER Gender Identity Not on file Sexual Orientation Not on file Obstetrics History Para Term AB IAB SAB Ectopic Multiple Livin g Live Births 7 1 1 2 2 5 Date Outcome GA Total Labor Labor/2nd/3rd Weight Sex Type Anes PTL Angelika A1 A5 Name Clin SAB SAB Last Filed Vital Signs Vital Sign Reading Time Taken Comments Blood Pressure 131/90 10/20/2024 8:50 AM CUSTOM CLOTHIER Pulse 109 10/20/2024 8:50 AM CUSTOM CLOTHIER Temperature 36.3 C (97.4 F) 10/20/2024 8:50 AM CUSTOM CLOTHIER Respiratory Rate 17 04/28/2022 12:09 PM CDT Oxygen Saturation 97% 10/20/2024 8:50 AM CUSTOM CLOTHIER Inhaled Oxygen Concentration - - Weight 104.8 kg (231 lb) 10/20/2024 8:50 AM CUSTOM CLOTHIER Height 160 cm (5' 3) 10/20/2024 8:50 AM CUSTOM CLOTHIER Body Mass Index 40.92 10/20/2024 8:50 AM CUSTOM CLOTHIER Plan of Treatment Health Maintenance Due Date Last Done Comments Cervical Cancer Screening 1983 Depression Screening 1983 Hepatitis C Screening 1983 DTaP/Tdap/Td Vaccine (1 - Tdap) 1994 Varicella Vaccines (1 of 2 - 13+ 2-dose series) 1996 Hepatitis B Screening 2001 Regular Well Visit/Exam 18-64 2001 Breast Cancer Screening-Mammogram 03/16/2024 03/16/2023, 03/10/2022 Covid-19 Vaccine ( season) 2024 09/12/2021, 11/26/2020, 10/29/2020 Influenza Vaccine (#1) 2025 , 10/12/2015, 08/11/2013, Additional history exists HPV Vaccines Aged Out No longer eligi ble based on patient's age to complete this topic Pneumococcal vaccine <65 Aged Out No longer eligible based on patient's age to complete this topic Medical Devices Implanted Type Area Career Representative Device Identifier Shelf Expiration Date Model / Serial / Lot Davol Inc/C R Bard [id number] Bard [id number] Monofilament Soft Lightweight Low Profile Square - [id number] Implanted:Qty: 1 on 04/27/2022 by Ciro Mackay MD at [facility] Mesh N/A: Abdomen [employer]/C R Bard [id number] 10/28/2026 [id number] / / [id number] Procedures Procedure Name Priority Date/Time Associated Diagnosis [...] Advance Directives For more information, please contact: [phone] * Full Code (Latest Code Status on File) Date Activated Date Inactivated Comments 04/27/2022 8:24 PM 04/28/2022 5:41 PM Care Teams Patient Portal Concierge Relationship Specialty Start Date End Date Yimi Razo MD PCP - General Internal Medicine 02/21/21
[2025-05-18 08:54] LABS: Add Urine Microscopic? NO; Appearance Urine Clear (Clear); Glucose Urine UA Negative (Negative); Leukocyte Esterase Ur Negative (Negative); Nitrate Urine Negative (Negative); Specific Grav Ur 1.015 (1.010-1.020)
[2025-05-18 08:55] LABS: Hematocrit 44.9 % (35.0-49.0); Hemoglobin 14.5 g/dL (12.0-15.0); Mean Corpuscular HGB Conc 32.3 g/dL (32-36); Mean Corpuscular Hemoglobin 27.5 pg (27.0-31.0); Mean Corpuscular Volume 85.0 fL (78.0-102.0); Platelet Count Result 329 K/mm3 (150-420); Red Blood Count 5.28 M/mm3 (4.20-5.40); White Blood Count 11.7 K/mm3 (4.8-10.8)
[2025-05-18 09:17] LABS: Hemoglobin A1C 5.3 % (<5.7)
[2025-05-18 10:00] LABS: Alanine Aminotransferase 30 U/L (6-35); Albumin Level 4.2 g/dL (3.5-5.1); Alkaline Phosphatase 86 U/L (38-126); Anion Gap 4 mmol/L (4-12); Aspartate Amino Transferase 27 U/L (14-36); Bilirubin,Total 0.6 mg/dL (0.2-1.3); Blood Urea Nitrogen 15 mg/dL (7-17); Calcium 9.1 mg/dL (8.4-10.2); Carbon Dioxide 28 mmol/L (22-30); Chloride 103 mmol/L (98-107); Cholesterol 182 mg/dL (0-200); Estimated Glomerular Filt Rate > 60; Glucose 88 mg/dL (65-110); HDL Direct 49 mg/dL; Osmolality Calculated 279 mOsm/kg (285-295); Potassium 4.4 mmol/L (3.4-5.0); Sodium 135 mmol/L (137-145); Total Protein 6.8 g/dL (6.3-8.2); Triglycerides 101 mg/dL (<150)
[2025-05-18 10:15] LABS: Free T4 Free Thyroxine 0.87 ng/dL (0.78-2.19)
[2025-05-18 10:29] LABS: Thyroid Stimulating Hormone 1.060 uIU/mL (0.465-4.680)
== END 2025-05-18 07:15 | disposition home or self-care (01) ==
LOC: CHSLAB 07:19
PROVIDERS: PCP Internal Medicine; Visit Provider Nurse Practitioner Family
DX: I10 Essential (primary) hypertension (principal); R73.01 Impaired fasting glucose
CPT/HCPCS: 36415; 80053; 80061; 81003; 83036; 84439; 84443; 85027

== ENCOUNTER 2025-07-04 12:03 | Outpatient (CLI) | payer OTHER, SELFPAY ==
[2025-07-04 12:42] LABS: Anion Gap 11 mmol/L (4-12); Blood Urea Nitrogen 8 mg/dL (7-17); Calcium 9.8 mg/dL (8.4-10.2); Carbon Dioxide 24 mmol/L (22-30); Chloride 106 mmol/L (98-107); Estimated Glomerular Filt Rate > 60; Glucose 112 mg/dL (65-110); Osmolality Calculated 291 mOsm/kg (285-295); Potassium 3.9 mmol/L (3.4-5.0); Sodium 141 mmol/L (137-145)
--- OUTSIDE RECORDS SUMMARY | 2025-07-04 13:38 | XMS_ITS | Clinical Summary ---
Author Organization [facility] Address [address] [place] [phone] Care Team Providers Care Berry Picker Machine Operator Name Role Phone Yimi Razo MD Primary Care Provider [phone] Allergies Active Allergy Reactions Criticality Noted Date [...] (02/12/2022): Added automatically from request for surgery [id number] Breast mass 03/06/2021 Abnormal mammogram of right [...] on file Legal Sex Female 2:14 AM SUPERVISOR LOADING Gender Identity Not on file Sexual Orientation Not on file Obstetrics History Para Term AB IAB SAB Ectopic Multiple Livin g Live Births 7 1 1 2 2 5 Date Outcome GA Total Labor Labor/2nd/3rd Weight Sex Type Anes PTL Angelika A1 A5 Name Clin SAB SAB Last Filed Vital Signs Vital Sign Reading Time Taken Comments Blood Pressure 131/90 10/20/2024 8:50 AM SUPERVISOR LOADING Pulse 109 10/20/2024 8:50 AM SUPERVISOR LOADING Temperature 36.3 C (97.4 F) 10/20/2024 8:50 AM SUPERVISOR LOADING Respiratory Rate 17 04/28/2022 12:09 PM CDT Oxygen Saturation 97% 10/20/2024 8:50 AM SUPERVISOR LOADING Inhaled Oxygen Concentration - - Weight 104.8 kg (231 lb) 10/20/2024 8:50 AM SUPERVISOR LOADING Height 160 cm (5' 3) 10/20/2024 8:50 AM SUPERVISOR LOADING Body Mass Index 40.92 10/20/2024 8:50 AM SUPERVISOR LOADING Plan of Treatment Health Maintenance Due Date Last Done Comments Cervical Cancer Screening 1983 Depression Screening 1983 Hepatitis C Screening 1983 DTaP/Tdap/Td Vaccine (1 - Tdap) 1994 Varicella Vaccines (1 of 2 - 13+ 2-dose series) 1996 Hepatitis B Screening 2001 Regular Well Visit/Exam 18-64 2001 HPV Vaccines (1 - 3-dose SCDM series) 2010 Breast Cancer Screening-Mammogram 03/16/2024 03/16/2023, 03/10/2022 Covid-19 Vaccine ( season) 2024 09/12/2021, 11/26/2020, 10/29/2020 Influenza Vaccine (#1) 2025 , 10/12/2015, 08/11/2013, Additional history exists Pneumococcal vaccine <65 Aged Out No longer eligible based on patient's age to complete this topic Medical Devices Implanted Type Area Product Managent Intern Device Identifier Shelf Expiration Date Model / Serial / Lot [employer]ol Inc/C R Bard [id number] Bard [id number] Monofilament Soft Lightweight Low Profile Square - [id number] Implanted:Qty: 1 on 04/27/2022 by Ciro Mackay MD at [facility] Mesh N/A: Abdomen [employer]/C R Bard [id number] 10/28/2026 [id number] / / [id number] Procedures Procedure Name Priority Date/Time Associated Diagnosis [...] Most Recently Relevant to Health Maintenance Insurance [facility] CHOICE PLUS [facility] H[facility]/PPO Address: [address] [place] [address] [facility] CHOICE PLUS [facility] H[facility]/PPO Address: [address] [address] [place] [address] [facility] CHOICE PLUS [facility] HMO/PPO Address: [address] [address] [place] [address] Advance Directives For more information, please contact: [phone] * Full Code (Latest Code Status on File) Date Activated Date Inactivated Comments 04/27/2022 8:24 PM 04/28/2022 5:41 PM Care Teams Berry Picker Machine Operator Relationship Specialty Start Date End Date Yimi Razo MD PCP - General Internal Medicine 02/21/21
== END 2025-07-04 12:04 | disposition home or self-care (01) ==
LOC: CHSLAB 12:05
PROVIDERS: PCP Internal Medicine; Visit Provider Nurse Practitioner Family
DX: I10 Essential (primary) hypertension (principal)
CPT/HCPCS: 36415; 80048